=== PATIENT | female | born 1955 | race Caucasian/White ===

== ENCOUNTER → 2016-11-18 | Outpatient (CLI) | payer OTHER ==
[~2016-11-18] MED LIST: NO HOME MEDS
--- NOTE | ~2016-11-18 | US6 ---
[facility] A Service of [facility] RADIOLOGY TEXT RESULTS PATIENT: BERNADINE AGUILA LOCATION: [facility] : 55 UNIT #: [id number] AGE: [address]: Neftali Duque MD SEX: F ORDER DR: [id number] [place] [id number] MR#: [id number] Acc #: [id number] NAME: BERNADINE AGUILA : 1955 SEX: F STUDY DATE/TIME: 11/18/2016 9:04 UNIT: [facility] ROOM: STUDY DESCRIPTION: US Abdominal Limited Attending Physician: Neftali Duque M.D. Ordering Physician: Neftali Duque M.D. Primary Care Physician: Neftali Duque M.D. MEDICAL IMAGING REPORT This report is preliminary unless electronic signature is present. EXAM Right upper quadrant abdominal ultrasound INDICATION Right upper quadrant abdominal pain for the past 2 weeks. PROCEDURE Wooetn-scale and Doppler imaging right upper quadrant of the abdomen. COMPARISON None. FINDINGS Visualized portions of pancreas unremarkable. Liver measures 12.7 cm. There are 2 hyperechoic lesions in the right hepatic lobe 1 measuring up to 2.6 cm, another measuring up to 1.9 cm. Unremarkable gallbladder. Common duct measures 1-2 mm. Right kidney measures 8.9 cm and is normal. IMPRESSION 1. No acute findings. 2. 2 hyperechoic lesions in the right hepatic lobe. These could represent benign hemangiomas but are indeterminate. Recommend evaluation with abdominal MRI or multiphase liver protocol CT. Dictated by... Anthony Sanchez M.D. THIS IS AN ELECTRONICALLY VERIFIED REPORT Anthony Sanchez M.D. at 11/21/2016 7:43 AM JANINE/costa [facility] A Service of [facility] RADIOLOGY TEXT RESULTS PATIENT: BERNADINE AGUILA LOCATION: [facility] : 55 UNIT #: [id number] AGE: [address]: Neftali Duque MD SEX: F ORDER DR: TD: 11/18/2016 12:39 JOB #: [id number] MEDICAL IMAGING REPORT Page 1 of 1
== END | disposition home or self-care (01) ==
LOC: SGUS 08:27
DX: R10.11 Right upper quadrant pain (principal); K76.9 Liver disease, unspecified
CPT/HCPCS: 76705

== ENCOUNTER → 2016-11-23 | Outpatient (CLI) | payer OTHER ==
--- NOTE | ~2016-11-23 | MR2 ---
[facility] A Service of [facility] RADIOLOGY TEXT RESULTS PATIENT: BERNADINE AGUILA LOCATION: [facility] : 55 UNIT #: [id number] AGE: [address]: Neftali Duque MD SEX: F ORDER DR: [id number] [address] [address] [id number] MR#: [id number] Acc #: [id number] NAME: BERNADINE AGUILA : 1955 SEX: F STUDY DATE/TIME: 11/23/2016 9:39 UNIT: [facility] ROOM: STUDY DESCRIPTION: MR Abdomen WWo Cont Attending Physician: Neftali Duque M.D. Referring Physician: Neftali Duque M.D. Ordering Physician: Neftali Duque M.D. Primary Care Physician: Neftali Duque M.D. MRI CENTER REPORT This report is preliminary unless electronic signature is present. EXAM MR abdomen INDICATIONS Right upper quadrant abdominal pain for 2-3 weeks. Intermittent pain is increasing in severity. TECHNIQUE Multiplanar MRI of the abdomen with and without IV contrast (14 mL MultiHance IV contrast). COMPARISON Abdominal ultrasound dated 10/19/2016. FINDINGS The liver is morphologically normal. There are three T2 hypertense lesions in the liver. The 2 larger lesions are in the superior right hepatic lobe (segment VII and VIII). A third smaller lesion is in the medial segment left hepatic lobe. The largest lesion measures 2.2 x 1.7 x 2.3 cm. The second index lesion measures 1.7 x 1 x 1.2 cm. These lesions have mild T2 hyperintensity, T1 hypointensity. Follow administration of contrast, there is peripheral nodular enhancement with gradual fill in. These are consistent with hemangiomas. Hepatic vasculature is patent. The gallbladder is not distended. Pancreas, spleen, adrenal glands, and kidneys are within normal limits. The bowel is not dilated. No enlarged retroperitoneal or mesenteric lymph nodes. The abdominal aorta is normal in caliber. IMPRESSION [facility] A Service of [facility] RADIOLOGY TEXT RESULTS PATIENT: BERNADINE AGUILA LOCATION: [facility] : 55 UNIT #: [id number] AGE: [address]: Neftali Duque MD SEX: F ORDER DR: 1. Normal morphology of the liver. 2. 3 benign hemangiomas are identified in the liver. No suspicious liver lesions. 3. Patent hepatic vasculature. Dictated by... Tariq Collado M.D. THIS IS AN ELECTRONICALLY VERIFIED REPORT Tariq Collado M.D. at 11/23/2016 3:51 PM PRADEEP/rolan TD: 11/23/2016 15:15 JOB #: [id number] MRI CENTER REPORT Page 1 of 1
[2016-11-23 10:15] LABS: POC - CREATININE 0.79 mg/dL (0.44-1.03); POC - GFR >60.0 mL/min (>60)
== END | disposition home or self-care (01) ==
LOC: SMRI 08:34
PROVIDERS: Family Medicine
DX: R10.11 Right upper quadrant pain (principal); D18.03 Hemangioma of intra-abdominal structures; R93.8 Abnormal findings on diagnostic imaging of other specified body structures
CPT/HCPCS: 74183; 82565; A9581